=== PATIENT | female | born 1935 | race Caucasian/White ===

== ENCOUNTER 2022-01-06 13:12 | Inpatient (IN) ==
[2022-01-06] MEDS ORDERED: IOPAMIDOL 100 ML BOTTLE IV ONE (13:13)
[2022-01-06] MEDS ORDERED: methylPREDNISolone SOD SUCC 125 MG/2 ML VIAL IV ONE (13:43)
[2022-01-06] MEDS ORDERED: IPRATROPIUM/ALBUTEROL 3 ML AMPUL.NEB NEB ONE (13:43)
[2022-01-06] MEDS ORDERED: 0.9 % SODIUM CHLORIDE 500 ML IV ONE (13:43)
--- NOTE | 2022-01-06 13:49 | Emergency Department Note ---
SOB HPI General Chief Complaint: Shortness of Breath/Dyspnea Stated Complaint: SOB Time Seen by Provider: 01/06/22 13:30 Source: patient and family Mode of arrival: wheelchair Limitations: no limitations History of Present Illness HPI Narrative: Narrative: 86-year-old female with past medical history of hypertension, atrial fibrillation on Coumadin, hypothyroidism, CVA presents with cough and shortness of breath since this morning. Patient had flu shot and COVID booster shots yesterday. No headache dizziness chest pain abdominal pain nausea vomiting diarrhea fever or chills Related Data Home Medications Medication Instructions Recorded Confirmed atorvastatin 20 mg tablet 10 mg PO HS 11/24/16 11/24/16 furosemide 40 mg tablet 40 mg PO DAILY 11/24/16 11/24/16 levothyroxine 112 mcg tablet 112 mcg PO DAILY 11/24/16 11/24/16 lisinopril 5 mg tablet 5 mg PO DAILY 11/24/16 11/24/16 nebivolol 10 mg tablet (Bystolic) 15 mg PO DAILY 11/24/16 11/24/16 potassium chloride 20 mEq 20 meq PO BID 11/24/16 11/24/16 tablet,extended release (K-Tab) warfarin 5 mg tablet (Jantoven) 5 mg PO DAILY 11/24/16 11/24/16 Previous Rx's Medication Instructions Recorded atorvastatin 20 mg tablet 10 mg PO HS #30 tabs 11/24/16 furosemide 40 mg tablet 40 mg PO DAILY #30 tabs 11/24/16 levothyroxine 112 mcg tablet 112 mcg PO DAILY #30 tabs 11/24/16 lisinopril 5 mg tablet 5 mg PO DAILY #30 tabs 11/24/16 nebivolol 10 mg tablet 15 mg PO DAILY #45 tabs 11/24/16 potassium chloride 20 mEq 20 meq PO BIDCC #60 tabs 11/24/16 tablet,extended release(part/cryst) warfarin 5 mg tablet 5 mg PO DAILY #30 tabs 11/24/16 benzonatate 100 mg capsule 100 mg PO TIDP PRN Cough #21 caps 04/12/19 hydrocodone 5 mg-acetaminophen 325 1 tab PO Q6-8HP PRN pain #10 tabs 1023/20 mg tablet Allergies Allergy/AdvReac Type Severity Reaction Status Date / Time iodine Allergy Unknown Unknown Verified 01/06/22 13:12 Review of Systems ROS ROS Narrative: Narrative: All systems ED: reviewed and negative except as stated. Constitutional: Reports as per HPI [facility] Narrative Patient History Narrative: Narrative: Medical/Surgical/Family History All Active Problems (Updated 01/06/22 @ 19:05 by Justino Liang MD) Acute confusion (Acute) Breath shortness (Acute) Cough (Acute) Hypoxia (Acute) Atrial fibrillation (Acute) Encounter for medication refill (Acute) Cough (Acute) Hypertension (Acute) Closed fracture of left wrist (Acute) Social History Smoking Status: Never smoker Alcohol Intake Frequency: does not drink Substance Use: does not use Exam Narrative Narrative: Narrative: General Limitations: no limitations General appearance: Present alert and in no apparent distress Head Head: Present atraumatic and normocephalic Respiratory Respiratory: Present wheezes (Bilateral inspiratory and expiratory) Cardiovascular Cardiovascular: Present regular rate, normal rhythm and normal heart sounds Adbominal Abdominal: Present soft and normal bowel sounds; Absent tenderness or organomegaly Extremities Extremities: Absent pedal edema, cyanosis or clubbing Neurological Neurological: Present alert and oriented X3 Course Course Course Narrative: CBC, CMP, PT/INR, chest x-ray, UA, influenza a and B, COVID were ordered. Normal saline 500 mL IV, methylprednisolone 125 mg IV and DuoNeb were given. Patient continues to have shortness of breath. She is hypoxic at the 88% on room air, improves to 96% on O2 2 L. WBC 6.8 INR 1.8. Potassium 3.2. BUN/creatinine 14/0.8. His INR is still subtherapeutic we will do CT angio of chest to rule out pulmonary embolism. CT angio was negative for pulmonary embolism. Patient is still hypoxic without O2. Will admit patient to [facility] for further treatment with nebulizers and IV steroids. Case discussed with hospitalist Dr. [place] who accepted the patient for admission. Vital Signs Vital signs: Vital Signs Pulse Rate 99 H 01/06/22 13:13 Respiratory Rate 22 01/06/22 13:13 Blood Pressure 190/102 01/06/22 13:13 Pulse Oximetry (%) 93 01/06/22 13:13 Oxygen Delivery Method 01/06/22 13:13 Pulse Rate 77 01/06/22 18:01 Respiratory Rate 21 01/06/22 18:01 Blood Pressure 127/78 01/06/22 18:01 Pulse Oximetry (%) 96 01/06/22 18:01 Oxygen Delivery Method 01/06/22 16:01 Oxygen Flow Rate (L/min) 2 01/06/22 15:31 MDM MDM Narrative Medical decision making narrative: Narrative: Lab Data Result diagrams: 01/06/22 14:15 01/06/22 14:14 Labs: Lab Results 01/06/22 01/06/22 01/06/22 Range/Units 14:14 14:14 14:15 WBC 6.8 (4.5-11.0) K/mcL RBC 4.60 (3.59-5.38) M/mcL Hgb 13.9 (11.2-15.7) g/dL Hct 43.1 (34.1-44.9) % POC Hct (36-48) MCV 93.7 (80.0-100.0) fL MCH 30.2 (26.0-34.0) pg MCHC 32.3 (31.0-36.0) g/dL RDW 14.8 H (11.5-14.5) % Plt Count 220 (140-440) K/mcL MPV 10.1 (8.8-12.5) fL Immature Gran % (Auto) 0.3 (0.0-0.5) % Neut % (Auto) 85.6 H (38.0-78.0) % Lymph % (Auto) 5.9 L (15.5-49.0) % [place] % (Auto) 6.9 (1.0-12.0) % Eos % (Auto) 0.4 (0.0-7.0) % Baso % (Auto) 0.9 (0.0-2.0) % Lymph # (Auto) 0.40 L (1.50-4.80) K/mcL [place] # (Auto) 0.47 (0.10-0.90) K/mcL Eos # (Auto) 0.03 (0.00-0.70) K/mcL Baso # (Auto) 0.06 (0.00-0.30) K/mcL Immature Gran # 0.02 (0.00-0.05) K/mcl Absolute Neutrophils 5.82 (1.80-8.00) K/mcL POC PT (11.9-14.5) POC INR (0.8-1.2) D-Dimer 0.73 H (0.27-0.50) ug/mL POC Sodium (133-145) Sodium 138 (133-145) mmol/L POC Potassium (3.3-5.1) Potassium 3.2 L (3.3-5.1) mmol/L POC Chloride (96-108) Chloride 97 (96-108) mmol/L Carbon Dioxide 31 H (22-30) mmol/L POC Total CO2 (22-30) Anion Gap 10.0 (8.0-16.0) POC BUN (6-20) BUN 14 (8-23) mg/dL Creatinine 0.8 (0.6-1.1) mg/dL POC Creatinine (0.6-1.2) GFR Calculation 66 Glucose 132 H (70-105) mg/dL POC Glucose (70-105) Calcium 9.2 (8.6-10.4) mg/dL POC WB Ioniz Calcium (1.16-1.32) Total Bilirubin 0.6 (0.1-1.0) mg/dL AST 25 (<32) U/L ALT 17 (<40) U/L Alkaline Phosphatase 79 (39-117) U/L Total Protein 7.0 (5.9-8.4) gm/dL Albumin 3.9 (3.2-5.2) gm/dL Globulin 3.1 (2.2-3.7) gm/dL Albumin/Globulin Ratio 1.3 (1.0-2.3) 01/06/22 01/06/22 Range/Units 14:25 15:53 WBC (4.5-11.0) K/mcL RBC (3.59-5.38) M/mcL Hgb (11.2-15.7) g/dL Hct (34.1-44.9) % POC Hct 43.0 (36-48) MCV (80.0-100.0) fL MCH (26.0-34.0) pg MCHC (31.0-36.0) g/dL RDW (11.5-14.5) % Plt Count (140-440) K/mcL MPV (8.8-12.5) fL Immature Gran % (Auto) (0.0-0.5) % Neut % (Auto) (38.0-78.0) % Lymph % (Auto) (15.5-49.0) % [place] % (Auto) (1.0-12.0) % Eos % (Auto) (0.0-7.0) % Baso % (Auto) (0.0-2.0) % Lymph # (Auto) (1.50-4.80) K/mcL [place] # (Auto) (0.10-0.90) K/mcL Eos # (Auto) (0.00-0.70) K/mcL Baso # (Auto) (0.00-0.30) K/mcL Immature Gran # (0.00-0.05) K/mcl Absolute Neutrophils (1.80-8.00) K/mcL POC PT 20.9 H (11.9-14.5) POC INR 1.8 H (0.8-1.2) D-Dimer (0.27-0.50) ug/mL POC Sodium 137 (133-145) Sodium (133-145) mmol/L POC Potassium 3.2 L (3.3-5.1) Potassium (3.3-5.1) mmol/L POC Chloride 98 (96-108) Chloride (96-108) mmol/L Carbon Dioxide (22-30) mmol/L POC Total CO2 29.0 (22-30) Anion Gap (8.0-16.0) POC BUN 14 (6-20) BUN (8-23) mg/dL Creatinine (0.6-1.1) mg/dL POC Creatinine 0.7 (0.6-1.2) GFR Calculation Glucose (70-105) mg/dL POC Glucose 130 H (70-105) Calcium (8.6-10.4) mg/dL POC WB Ioniz Calcium 1.05 L (1.16-1.32) Total Bilirubin (0.1-1.0) mg/dL AST (<32) U/L ALT (<40) U/L Alkaline Phosphatase (39-117) U/L Total Protein (5.9-8.4) gm/dL Albumin (3.2-5.2) gm/dL Globulin (2.2-3.7) gm/dL Albumin/Globulin Ratio (1.0-2.3) ED POC Tests ED POC Tests: KAMRYN - Influenza A Negative KAMRYN - Influenza B Negative KAMRYN - SARS Antigen Negative Discharge Plan Patient/Caregiver Discharge Instructions Pt seen by AIRPORT DRIVER/PA only: No Clinical Impression: Breath shortness, Cough, Hypoxia Patient Disposition: Xfer As Inpt ([facility]) Condition: Serious Follow up with: Pamela Bowman ARNP [Primary Care Provider] - Prescriptions: No Action furosemide 40 MG tablet 40 mg PO DAILY atorvastatin 20 MG tablet 10 mg PO HS warfarin [Jantoven] 5 MG tablet 5 mg PO DAILY lisinopril 5 MG tablet 5 mg PO DAILY levothyroxine 112 MCG tablet 112 mcg PO DAILY nebivolol [Bystolic] 10 MG tablet 15 mg PO DAILY potassium chloride [K-Tab] 20 MEQ tablet extended release 20 meq PO BID furosemide 40 MG tablet 40 mg PO DAILY Qty: 30 0RF atorvastatin 20 MG tablet 10 mg PO HS Qty: 30 0RF potassium chloride 20 MEQ tablet 20 meq PO BIDCC Qty: 60 0RF warfarin 5 MG tablet 5 mg PO DAILY Qty: 30 0RF lisinopril 5 MG tablet 5 mg PO DAILY Qty: 30 0RF levothyroxine 112 MCG tablet 112 mcg PO DAILY Qty: 30 0RF nebivolol 10 MG tablet 15 mg PO DAILY Qty: 45 0RF benzonatate 100 MG capsule 100 mg PO TIDP PRN (Reason: Cough) Qty: 21 0RF hydrocodone-acetaminophen 5-325 mg tablet 1 tab PO Q6-8HP PRN (Reason: pain) Qty: 10 0RF
--- NOTE | 2022-01-06 14:02 | XRay Report ---
INDICATION: cough TECHNIQUE: AP portable chest x-ray COMPARISON: Previous chest x-rays dated 02/16/2021, 04/12/2019 FINDINGS: Lungs:Focal right paraspinal density projected over the upper right lung. This is probably vascular as this does not extend above the clavicles. Appearance is unchanged since previous examinations. No other focal pulmonary parenchymal abnormality Heart, vascular:No significant cardiomegaly. Pulmonary vascularity is normal. No pulmonary edema or pulmonary congestion Mediastinum, kalli:No mediastinal widening. No hilar mass Pleura:Small left pleural effusion is essentially unchanged Skeletal:Negative. There is degenerative disease in both glenohumeral joints IMPRESSION: 1. Small left pleural effusion 2. No focal pulmonary parenchymal abnormality 3. No significant interval change Interpreted and Authenticated by: Bernabe Graham 01/06/22
[2022-01-06 14:29] LABS: POC INR 1.8 (0.8-1.2); POC Pro Time 20.9 (11.9-14.5)
[2022-01-06 15:02] LABS: Basophils # (Auto) 0.06 K/mcL (0.00-0.30); Basophils % (Auto) 0.9 % (0.0-2.0); Eosinophils # (Auto) 0.03 K/mcL (0.00-0.70); Eosinophils % (Auto) 0.4 % (0.0-7.0); Hematocrit 43.1 % (34.1-44.9); Hemoglobin 13.9 g/dL (11.2-15.7); Lymphocytes % (Auto) 5.9 % (15.5-49.0); Mean Cell Volume 93.7 fL (80.0-100.0); Mean Corpuscular HGB Conc 32.3 g/dL (31.0-36.0); Mean Platelet Volume 10.1 fL (8.8-12.5); Monocytes # (Auto) 0.47 K/mcL (0.10-0.90); Monocytes % (Auto) 6.9 % (1.0-12.0); Neutrophils % (Auto) 85.6 % (38.0-78.0); Platelet Count 220 K/mcL (140-440); Red Cell Distribution Width 14.8 % (11.5-14.5); WBC 6.8 K/mcL (4.5-11.0)
[2022-01-06 15:39] LABS: ALT/SGPT 17 U/L (<40); AST/SGOT 25 U/L (<32); Albumin 3.9 gm/dL (3.2-5.2); Albumin/Globulin Ratio 1.3 (1.0-2.3); Alkaline Phosphatase 79 U/L (39-117); Bilirubin,Total 0.6 mg/dL (0.1-1.0); Blood Urea Nitrogen 14 mg/dL (8-23); Calcium 9.2 mg/dL (8.6-10.4); Carbon Dioxide 31 mmol/L (22-30); Chloride 97 mmol/L (96-108); Globulin 3.1 gm/dL (2.2-3.7); Glomerular Filtration Rate 66; Glucose 132 mg/dL (70-105)
[2022-01-06 15:56] LABS: POC Calcium, Ionized 1.05 (1.16-1.32); POC Creatinine 0.7 (0.6-1.2); POC Potassium 3.2 (3.3-5.1)
--- NOTE | 2022-01-06 16:40 | Cat Scan Report ---
INDICATION: shortness of breath, Low INR COMPARISON: Chest x-ray dated 01/06/2022 TECHNIQUE: Axial images obtained through the chest. 50ml Isovue 370 injected intravenously, and scanning was performed during pulmonary arterial phase. Sagittally and coronally reformatted images were obtained. MIP reformatted images. FINDINGS: Lungs:Findings consistent with bilateral lower lobe volume loss, right slightly worse than left. There is mild volume loss adjacent to the left greater fissure. No evidence for pneumonia. No consolidation. There is no focal pulmonary parenchymal mass Mediastinum, vascular:Main pulmonary artery, right pulmonary artery, left pulmonary artery are negative. No intraluminal filling defects. No lobar, segmental, or subsegmental emboli. Thoracic aorta is negative. No aneurysmal dilatation No pathologic mediastinal or hilar adenopathy Heart:There is cardiomegaly. There is marked enlargement of the right atrium. No significant reflux of contrast material into the inferior vena cava or hepatic veins Pleura:There are small bilateral pleural effusions Axilla, supraclavicular regions, chest wall:No pathologic axillary or supraclavicular adenopathy. Musculoskeletal:Negative thoracic spine. No compression fracture. No lytic lesion. No rib or sternal lesions Upper Abdomen:There is a large low-density abnormality within the liver. This measures approximately 13 cm in AP dimension and 10 cm in mediolateral dimension. Is not measured and craniocaudal dimension. Appearance is consistent with a large hepatic cyst. IMPRESSION: 1. Negative pulmonary CTA. No pulmonary embolism 2. Cardiomegaly. Marked right atrial enlargement. 3. Bilateral lower lobe volume loss. Small bilateral pleural effusions 4. Large low density lesion within the liver consistent with hepatic cyst The exam was performed using radiation dose optimization techniques including, but not limited to, automated exposure control, adjustment of the mA and/or kV according to patient size and use of iterative reconstruction technique. Interpreted and Authenticated by: Bernabe Graham 01/06/22
--- NOTE | 2022-01-06 19:07 | Internal Med History&Physical ---
HPI History of Present Illness Patient information: Note initiated : 01/06/22 at 7:02 pm Service Date, if different from initiated Date: [] Patient: Kevon Gomez 86 y/o F admitted on for Shortness of breath. Chief Complaint: [] History of present illness: Ms. Gomez is a 86 year old F Presents to the ED with dry cough and shortness of breath that started this morning. Patient denies history of asthma or COPD. She had a flu shot and COVID booster the other day. In the ED she was found to be hypoxic at 86% and mild tachypnea. She was wheezy on exam. Was given nebulizers and Solu-Medrol. CT of the chest was done which showed small effusions but otherwise unremarkable. RSV pending. Rapid COVID and flu were negative. She has a history of CVA as well as A. fib on Coumadin hypertension and hypothyroidism and diastolic heart failure. Potassium mildly low. Per the patient she was feeling fine yesterday she had the flu vaccine and the COVID booster. She went to bed feeling okay and woke up feeling fine. However she says her son felt she was a bit confused this morning. And she also admits to a mild cough and shortness of breath. Denies headache fever chills chest pain. She also feels little bit wheezy. Review of Systems: Positives as above. Denies headache/fever/chills/nausea/vomiting/chest or abdominal pain/diarrhea. Remaining 10 point review of system reviewed negative PFSH PFSH All Active Problems (Updated 01/06/22 @ 19:05 by Justino Liang MD) Acute confusion (Acute) Breath shortness (Acute) Cough (Acute) Hypoxia (Acute) Atrial fibrillation (Acute) Encounter for medication refill (Acute) Cough (Acute) Hypertension (Acute) Closed fracture of left wrist (Acute) Social History smoking status: Never smoker alcohol intake frequency: does not drink substance use type: does not use MEDS/ALLERGIES Home Medications and Allergies Home Medications Medication Instructions Recorded Confirmed Type atorvastatin 20 mg tablet 10 mg PO HS 11/24/16 01/06/22 History furosemide 40 mg tablet 40 mg PO DAILY 11/24/16 11/24/16 History levothyroxine 112 mcg tablet 112 mcg PO DAILY 11/24/16 01/06/22 History lisinopril 5 mg tablet 5 mg PO DAILY 11/24/16 01/06/22 History nebivolol 10 mg tablet (Bystolic) 15 mg PO DAILY 11/24/16 01/06/22 History potassium chloride 20 mEq 20 meq PO BIDCC #60 tabs 11/24/16 01/06/22 Rx tablet,extended release(part/cryst) warfarin 5 mg tablet (Jantoven) 5 mg PO DAILY 11/24/16 01/06/22 History benzonatate 100 mg capsule 100 mg PO TIDP PRN Cough #21 caps 04/12/19 01/06/22 Rx hydrocodone 5 mg-acetaminophen 325 1 tab PO Q6-8HP PRN pain #10 tabs 11/30/19 Rx mg tablet Allergies Allergy/AdvReac Type Severity Reaction Status Date / Time iodine AdvReac Mild [place] skin Verified 01/06/22 20:21 EXAM Constitutional Vitals: Pulse Resp BP Pulse Ox O2 Del Method O2 Flow Rate 77 21 127/78 96 2 01/06/22 18:01 01/06/22 18:01 01/06/22 18:01 01/06/22 18:01 01/06/22 16:01 01/06/22 15:31 Exam: General: Alert, Awake, No acute Distress Eyes/N/T: EOMI, PERRL, Head/Neck: neck supple, normocephalic atraumatic CV: irreg irreg, No murmurs, normal s1/s2 Pulm: mild wheezing b/l, no rales Abd: soft, nontender, +BS x4 Ext: no clubbing/cyanosis, trace b/l LE edema Neuro: Alert, no focal deficits, moves all extremities, CN 2-12 grossly intact, sensations intact b/l upper/lower Skin: warm/dry DATA Data Completed and Pending Labs: Labs from last 24 hours 01/06/22 01/06/22 01/06/22 15:53 14:25 14:15 WBC 6.8 RBC 4.60 Hgb 13.9 Hct 43.1 POC Hct 43.0 MCV 93.7 MCH 30.2 MCHC 32.3 RDW 14.8 H Plt Count 220 MPV 10.1 Immature Gran % (Auto) 0.3 Neut % (Auto) 85.6 H Lymph % (Auto) 5.9 L [place] % (Auto) 6.9 Eos % (Auto) 0.4 Baso % (Auto) 0.9 Lymph # (Auto) 0.40 L [place] # (Auto) 0.47 Eos # (Auto) 0.03 Baso # (Auto) 0.06 Immature Gran # 0.02 Absolute Neutrophils 5.82 POC PT 20.9 H POC INR 1.8 H D-Dimer POC Sodium 137 Sodium POC Potassium 3.2 L Potassium POC Chloride 98 Chloride Carbon Dioxide POC Total CO2 29.0 Anion Gap POC BUN 14 BUN Creatinine POC Creatinine 0.7 GFR Calculation Glucose POC Glucose 130 H Calcium POC WB Ioniz Calcium 1.05 L Total Bilirubin AST ALT Alkaline Phosphatase Total Protein Albumin Globulin Albumin/Globulin Ratio 01/06/22 01/06/22 14:14 14:14 WBC RBC Hgb Hct POC Hct MCV MCH MCHC RDW Plt Count MPV Immature Gran % (Auto) Neut % (Auto) Lymph % (Auto) [place] % (Auto) Eos % (Auto) Baso % (Auto) Lymph # (Auto) [place] # (Auto) Eos # (Auto) Baso # (Auto) Immature Gran # Absolute Neutrophils POC PT POC INR D-Dimer 0.73 H POC Sodium Sodium 138 POC Potassium Potassium 3.2 L POC Chloride Chloride 97 Carbon Dioxide 31 H POC Total CO2 Anion Gap 10.0 POC BUN BUN 14 Creatinine 0.8 POC Creatinine GFR Calculation 66 Glucose 132 H POC Glucose Calcium 9.2 POC WB Ioniz Calcium Total Bilirubin 0.6 AST 25 ALT 17 Alkaline Phosphatase 79 Total Protein 7.0 Albumin 3.9 Globulin 3.1 Albumin/Globulin Ratio 1.3 A/P Narrative A/P Narrative: A: *Acute hypoxic respiratory failure: etiology -on 2L NC *Reactive airway, possibly viral-associated bronchial reactivity: *Encephalopathy: Improved *Chronic Afib: *h/o CVA: *h/o diastolic CHF: *HTN/HLD: *Hypothyroidism: *Hypokalemia: P: -nebs -steroids -O2 supp and wean -f/u cxr in AM -RSV pending -Monitor and replace electrolytes -Continue home BB/ACEI -cont home lasix - -Home medication reconciliation -PT/OT -ppx: warfarin per pharm Time Spent With Patient Time: Total time spent is greater than 50% in coordination of care (as documented) at patient's floor/unit and/or counseling patient: Total time spent with greater than 50% in coordination of care (as documented) at patient's floor/unit and/or counseling patient:: Greater than 70 minutes
[2022-01-06] MEDS ORDERED: POTASSIUM CHLORIDE 40 MEQ in DEXTROSE 5% IN WATER 500 ML IV PRN (19:59)
[2022-01-06] MEDS ORDERED: IPRATROPIUM/ALBUTEROL 3 ML AMPUL.NEB NEB PRN (19:59)
[2022-01-06] MEDS ORDERED: SENNOSIDES 1 TABLET PO PRN (19:59)
[2022-01-06] MEDS ORDERED: ACETAMINOPHEN 325 MG TABLET PO PRN (19:59)
[2022-01-06] MEDS ORDERED: POTASSIUM CHLORIDE 20 MEQ TABLET PO PRN ×2 (19:59)
[2022-01-06] MEDS ORDERED: MAGNESIUM SULFATE 2 GM/50 ML BAG IV PRN (19:59)
[2022-01-06] MEDS ORDERED: POLYETHYLENE GLYCOL 3350 17 GM PACKET PO PRN (19:59)
[2022-01-06] MEDS ORDERED: ONDANSETRON 4 MG/2 ML VIAL IV PRN (19:59)
[2022-01-06] MEDS: IPRATROPIUM/ALBUTEROL 3 ML AMPUL.NEB NEB SCH (20:54)
[2022-01-06] MEDS ORDERED: WARFARIN 5 MG TABLET PO ONE (21:00)
[2022-01-06] MEDS ORDERED: HYDROcodone/APAP 5/325MG TABLET PO PRN (21:00)
[2022-01-06] MEDS: methylPREDNISolone SOD SUCC 40 MG/ML VIAL IV SCH (21:06)
[2022-01-06] MEDS: DOCUSATE SODIUM 100 MG CAPSULE PO SCH (21:06)
[2022-01-06] MEDS: OSELTAMIVIR PHOSPHATE 75 MG CAPSULE PO SCH (21:06)
[2022-01-06] MEDS: 0.9 % SODIUM CHLORIDE 10 ML SYRINGE IV SCH (21:06)
[2022-01-06] MEDS: ATORVASTATIN 20 MG TABLET PO SCH (22:15)
[2022-01-07] MEDS: IPRATROPIUM/ALBUTEROL 3 ML AMPUL.NEB NEB SCH ×2 (03:40→15:53)
[2022-01-07] MEDS: 0.9 % SODIUM CHLORIDE 10 ML SYRINGE IV SCH ×4 (04:06→22:48)
[2022-01-07] MEDS: METOPROLOL TARTRATE 5 MG/5 ML VIAL IV PRN ×4 (04:06→16:35)
--- NOTE | 2022-01-07 06:13 | XRay Report ---
INDICATION: f/u for cough and hypoxia TECHNIQUE: AP portable semiupright chest x-ray COMPARISON: None FINDINGS: Lungs:Mild bibasilar pulmonary parenchymal density. Findings are consistent with mild volume loss. Pneumonia is possible. Heart, vascular:No significant cardiomegaly. Pulmonary vascularity is normal. No pulmonary edema or pulmonary congestion Mediastinum, kalli:No mediastinal widening. No hilar mass Pleura:Small bilateral pleural effusions Skeletal:Negative. IMPRESSION: 1. Mild bibasilar atelectasis or infiltrate 2. Small bilateral pleural effusions Interpreted and Authenticated by: Bernabe Graham 01/07/22
--- NOTE | 2022-01-07 07:42 | Internal Med History&Physical ---
HPI History of Present Illness Patient information: Note initiated : 01/07/22 at 7:38 am Service Date, if different from initiated Date: [] Patient: Kevon Gomez 86 y/o F admitted on 01/06/22 for Shortness of breath- Acute Hypoxic Resp Failure. Chief Complaint: [] History of present illness: Ms. Gomez is a 86 year old F History of present illness: Ms. Gomez is a 86 year old F Presents to the ED with dry cough and shortness of breath that started this morning. Patient denies history of asthma or COPD. She had a flu shot and COVID booster the other day. In the ED she was found to be hypoxic at 86% and mild tachypnea. She was wheezy on exam. Was given nebulizers and Solu-Medrol. CT of the chest was done which showed small effusions but otherwise unremarkable. RSV pending. Rapid COVID and flu were negative. She has a history of CVA as well as A. fib on Coumadin hypertension and hypothyroidism and diastolic heart failure. Potassium mildly low. Per the patient she was feeling fine yesterday she had the flu vaccine and the COVID booster. She went to bed feeling okay and woke up feeling fine. However she says her son felt she was a bit confused this morning. And she also admits to a mild cough and shortness of breath. Denies headache fever chills chest pain. She also feels little bit wheezy. 01/07 PFSH PFSH All Active Problems (Updated 01/06/22 @ 19:05 by Justino Liang MD) Acute confusion (Acute) Breath shortness (Acute) Cough (Acute) Hypoxia (Acute) Atrial fibrillation (Acute) Encounter for medication refill (Acute) Cough (Acute) Hypertension (Acute) Closed fracture of left wrist (Acute) Social History smoking status: Never smoker alcohol intake frequency: does not drink substance use type: does not use MEDS/ALLERGIES Home Medications and Allergies Home Medications Medication Instructions Recorded Confirmed Type atorvastatin 20 mg tablet 10 mg PO HS 11/24/16 01/06/22 History furosemide 40 mg tablet 40 mg PO DAILY 11/24/16 11/24/16 History levothyroxine 112 mcg tablet 112 mcg PO DAILY 11/24/16 01/06/22 History lisinopril 5 mg tablet 5 mg PO DAILY 11/24/16 01/06/22 History potassium chloride 20 mEq 20 meq PO BIDCC #60 tabs 11/24/16 01/06/22 Rx tablet,extended release(part/cryst) warfarin 5 mg tablet (Jantoven) 5 mg PO DAILY 11/24/16 01/06/22 History benzonatate 100 mg capsule 100 mg PO TIDP PRN Cough #21 caps 04/12/19 01/06/22 Rx hydrocodone 5 mg-acetaminophen 325 1 tab PO Q6-8HP PRN pain #10 tabs 11/30/19 Rx mg tablet bisoprolol fumarate 10 mg tablet 15 mg PO QAM blood pressure 01/07/22 01/07/22 History Allergies Allergy/AdvReac Type Severity Reaction Status Date / Time iodine AdvReac Mild [place] skin Verified 01/06/22 20:21 EXAM Constitutional Vitals: Temp Pulse Resp BP Pulse Ox O2 Del Method O2 Flow Rate 98.2 F 84 24 H 144/91 95 3 01/07/22 03:37 01/07/22 03:57 01/07/22 03:57 01/07/22 03:37 01/07/22 03:43 01/07/22 03:43 01/07/22 03:43 Exam: General: Alert, Awake, No acute Distress Eyes/N/T: EOMI,, Head/Neck: neck supple, CV: irreg irreg, No murmurs, Pulm: mild wheezing b/l, no rales Abd: soft, nontender, +BS x4 Ext: no clubbing/cyanosis, trace b/l LE edema Neuro: Alert, no focal deficits, moves all extremities, Skin: warm/dry DATA Data Completed and Pending Labs: Labs from last 24 hours 01/07/22 01/07/22 01/06/22 05:30 05:30 15:53 WBC Pending RBC Pending Hgb Pending Hct Pending POC Hct 43.0 MCV Pending MCH Pending MCHC Pending RDW Pending Plt Count Pending MPV Pending Immature Gran % (Auto) Pending Neut % (Auto) Pending Lymph % (Auto) Cobb % (Auto) Eos % (Auto) Baso % (Auto) Lymph # (Auto) Cobb # (Auto) Eos # (Auto) Baso # (Auto) Immature Gran # Pending Absolute Neutrophils POC PT POC INR D-Dimer POC Sodium 137 Sodium Pending POC Potassium 3.2 L Potassium Pending POC Chloride 98 Chloride Pending Carbon Dioxide Pending POC Total CO2 29.0 Anion Gap Pending POC BUN 14 BUN Pending Creatinine Pending POC Creatinine 0.7 GFR Calculation Pending Glucose Pending POC Glucose 130 H Uric Acid Pending Calcium Pending POC WB Ioniz Calcium 1.05 L Phosphorus Pending Magnesium Pending Total Bilirubin Pending Direct Bilirubin Pending GGT Pending AST Pending ALT Pending Alkaline Phosphatase Pending Lactate Dehydrogenase Pending C-Reactive Protein Total Protein Pending Albumin Pending Globulin Pending Albumin/Globulin Ratio Pending Triglycerides Pending 01/06/22 01/06/22 01/06/22 14:25 14:15 14:14 WBC 6.8 RBC 4.60 Hgb 13.9 Hct 43.1 POC Hct MCV 93.7 MCH 30.2 MCHC 32.3 RDW 14.8 H Plt Count 220 MPV 10.1 Immature Gran % (Auto) 0.3 Neut % (Auto) 85.6 H Lymph % (Auto) 5.9 L Cobb % (Auto) 6.9 Eos % (Auto) 0.4 Baso % (Auto) 0.9 Lymph # (Auto) 0.40 L Cobb # (Auto) 0.47 Eos # (Auto) 0.03 Baso # (Auto) 0.06 Immature Gran # 0.02 Absolute Neutrophils 5.82 POC PT 20.9 H POC INR 1.8 H D-Dimer POC Sodium Sodium POC Potassium Potassium POC Chloride Chloride Carbon Dioxide POC Total CO2 Anion Gap POC BUN BUN Creatinine POC Creatinine GFR Calculation Glucose POC Glucose Uric Acid Calcium POC WB Ioniz Calcium Phosphorus Magnesium Total Bilirubin Direct Bilirubin GGT AST ALT Alkaline Phosphatase Lactate Dehydrogenase C-Reactive Protein 1.00 H Total Protein Albumin Globulin Albumin/Globulin Ratio Triglycerides 01/06/22 01/06/22 14:14 14:14 WBC RBC Hgb Hct POC Hct MCV MCH MCHC RDW Plt Count MPV Immature Gran % (Auto) Neut % (Auto) Lymph % (Auto) Cobb % (Auto) Eos % (Auto) Baso % (Auto) Lymph # (Auto) Cobb # (Auto) Eos # (Auto) Baso # (Auto) Immature Gran # Absolute Neutrophils POC PT POC INR D-Dimer 0.73 H POC Sodium Sodium 138 POC Potassium Potassium 3.2 L POC Chloride Chloride 97 Carbon Dioxide 31 H POC Total CO2 Anion Gap 10.0 POC BUN BUN 14 Creatinine 0.8 POC Creatinine GFR Calculation 66 Glucose 132 H POC Glucose Uric Acid Calcium 9.2 POC WB Ioniz Calcium Phosphorus Magnesium Total Bilirubin 0.6 Direct Bilirubin GGT AST 25 ALT 17 Alkaline Phosphatase 79 Lactate Dehydrogenase C-Reactive Protein Total Protein 7.0 Albumin 3.9 Globulin 3.1 Albumin/Globulin Ratio 1.3 Triglycerides A/P Narrative A/P Narrative: A: *Acute hypoxic respiratory failure: 2/2 viral reactive airway vs ?developing pna -on 2L [place] *Reactive airway, viral-associated bronchial reactivity: -flu(+), rsv(-) *Influenza A infection: *Encephalopathy: Improved *Chronic Afib: *h/o CVA: *h/o diastolic CHF: *HTN/HLD: *Hypothyroidism: *Hypokalemia: P: -nebs -steroids -O2 supp and wean -f/u cxr in AM -RSV pending -Monitor and replace electrolytes -f/u cbc/chemistry -Continue home BB/ACEI -cont home lasix -pct -PT/OT -ppx: warfarin per pharm Time Spent With Patient Time: Total time spent is greater than 50% in coordination of care (as documented) at patient's floor/unit and/or counseling patient: Total time spent with greater than 50% in coordination of care (as documented) at patient's floor/unit and/or counseling patient:: 35 - 50 minutes QUALITY VTE Deep Vein Thrombosis/Pulmonary Embolism Present on Admission: No
[2022-01-07 07:58] LABS: Basophils # (Auto) 0.01 K/mcL (0.00-0.30); Basophils % (Auto) 0.2 % (0.0-2.0); Eosinophils # (Auto) 0 K/mcL (0.00-0.70); Eosinophils % (Auto) 0 % (0.0-7.0); Hematocrit 42.9 % (34.1-44.9); Hemoglobin 14.1 g/dL (11.2-15.7); Lymphocytes # (Auto) 0.26 K/mcL (1.50-4.80); Lymphocytes % (Auto) 5.3 % (15.5-49.0); Mean Cell Volume 93.1 fL (80.0-100.0); Mean Corpuscular HGB Conc 32.9 g/dL (31.0-36.0); Mean Platelet Volume 10.3 fL (8.8-12.5); Monocytes # (Auto) 0.34 K/mcL (0.10-0.90); Neutrophils % (Auto) 87.3 % (38.0-78.0); Platelet Count 209 K/mcL (140-440); RBC 4.61 M/mcL (3.59-5.38); Red Cell Distribution Width 14.7 % (11.5-14.5); WBC 4.9 K/mcL (4.5-11.0)
[2022-01-07] MEDS: LEVOTHYROXINE SODIUM 112 MCG TABLET PO SCH (08:07)
[2022-01-07] MEDS: methylPREDNISolone SOD SUCC 40 MG/ML VIAL IV SCH ×2 (08:07→21:46)
[2022-01-07] MEDS: DOCUSATE SODIUM 100 MG CAPSULE PO SCH ×2 (08:07→23:03)
[2022-01-07] MEDS: FUROSEMIDE 40 MG TABLET PO SCH (08:07)
[2022-01-07] MEDS: LISINOPRIL 5 MG TABLET PO SCH (08:07)
[2022-01-07] MEDS: OSELTAMIVIR PHOSPHATE 75 MG CAPSULE PO SCH ×2 (08:07→21:44)
[2022-01-07 08:56] LABS: INR 1.8 (0.9-1.1); Prothrombin Time 21.1 sec (11.9-14.5)
[2022-01-07] MEDS ORDERED: BISOPROLOL 5 MG TABLET PO SCH (09:00)
--- NOTE | 2022-01-07 09:21 | Internal Med Progress Note ---
SUBJECTIVE Subjective Patient information: Note initiated : 01/07/22 at 9:20 am Service Date, if different from initiated Date: [] Patient: Kevon Gomez 86 y/o F admitted on 01/06/22 for Shortness of breath- Acute Hypoxic Resp Failure. Chief Complaint: [] Interval history: History of present illness: Ms. Gomez is a 86 year old F History of present illness: Ms. Gomez is a 86 year old F Presents to the ED with dry cough and shortness of breath that started this morning. Patient denies history of asthma or COPD. She had a flu shot and COVID booster the other day. In the ED she was found to be hypoxic at 86% and mild tachypnea. She was wheezy on exam. Was given nebulizers and Solu-Medrol. CT of the chest was done which showed small effusions but otherwise unremarkable. RSV pending. Rapid COVID and flu were negative. She has a history of CVA as well as A. fib on Coumadin hypertension and hypothyroidism and diastolic heart failure. Potassium mildly low. Per the patient she was feeling fine yesterday she had the flu vaccine and the COVID booster. She went to bed feeling okay and woke up feeling fine. However she says her son felt she was a bit confused this morning. And she also admits to a mild cough and shortness of breath. Denies headache fever chills chest pain. She also feels little bit wheezy. 01/07 Patient still has mild cough. Some mild shortness of breath at possibly better. Influenza A positive on testing. Chest x-ray today showed some mild bibasilar atelectasis versus infiltrate. I suspect more atelectasis. Procalcitonin is unremarkable. Mild hypokalemia. Review of Systems: denies headache/fever/chills/nausea/vomiting/chest or abdominal pain/diarrhea. Otherwise see above. Constitutional Vitals: Vital Signs Temp Pulse Resp BP Pulse Ox O2 Del Method O2 Flow Rate 98.6 F 99 H 22 150/80 97 3 01/07/22 07:45 01/07/22 07:45 01/07/22 07:45 01/07/22 07:45 01/07/22 07:45 01/07/22 07:45 01/07/22 07:45 Period Temp Pulse Resp BP Sys/Calloway Pulse Ox O2 Del Method O2 Flow Rate Last 24 Hr 97.5 F-99.0 F 72-99 16-28 127-190/76-137 86-100 Aerosol Mask- Room Air 2-3 Intake and Output 01/06/22 01/07/22 01/07/22 19:59 03:59 11:59 Intake Total 500 200 Output Total 450 Balance 500 -250 Weight 50.213 kg Intake & Output: Intake & Output 01/06/22 01/07/22 01/07/22 19:59 03:59 11:59 Intake Total 500 200 Output Total 450 Balance 500 -250 Weight 50.213 kg Intake: IV 500 Sodium Chloride 0.9% 500 ml @ 500 Wide Open IV [facility] Rx#: [id number] Oral 200 Output: Void Amount 450 Other: Urine Appearance Clear Urine Color Bright Yellow Exam: General: Alert, Awake, No acute Distress Eyes/N/T: EOMI,, Head/Neck: neck supple, CV: irreg irreg, No murmurs, Pulm: mild wheezing b/l slightly better, no rales Abd: soft, nontender, +BS x4 Ext: no clubbing/cyanosis, trace b/l LE edema Neuro: Alert, no focal deficits, moves all extremities, Skin: warm/dry OBJ DATA Labs CBC & Chem 7: 01/07/22 05:30 01/07/22 05:30 Labs: Abnormal Lab Results 01/07/22 01/07/22 01/06/22 07:51 05:30 15:53 RDW 14.7 H Neut % (Auto) 87.3 H Lymph % (Auto) 5.3 L Lymph # (Auto) 0.26 L POC PT PT 21.1 H POC INR INR 1.8 H D-Dimer POC Potassium 3.2 L Potassium Carbon Dioxide Glucose POC Glucose 130 H POC WB Ioniz Calcium 1.05 L C-Reactive Protein 01/06/22 01/06/22 01/06/22 14:25 14:15 14:14 RDW 14.8 H Neut % (Auto) 85.6 H Lymph % (Auto) 5.9 L Lymph # (Auto) 0.40 L POC PT 20.9 H PT POC INR 1.8 H INR D-Dimer POC Potassium Potassium Carbon Dioxide Glucose POC Glucose POC WB Ioniz Calcium C-Reactive Protein 1.00 H 01/06/22 01/06/22 14:14 14:14 RDW Neut % (Auto) Lymph % (Auto) Lymph # (Auto) POC PT PT POC INR INR D-Dimer 0.73 H POC Potassium Potassium 3.2 L Carbon Dioxide 31 H Glucose 132 H POC Glucose POC WB Ioniz Calcium C-Reactive Protein Meds: Medications Acetaminophen (Acetaminophen 325 Mg Tablet) 650 mg PO Q6HP PRN; Protocol PRN Reason: Per Pain Protocol/Fever > 101 Hydrocodone Bitart/Acetaminophen (Hydrocodone/Apap 5/325mg Tablet) 1 tab PO Q6- 8HP PRN; Protocol PRN Reason: pain Albuterol/Ipratropium (Ipratropium/Albuterol 3 Ml Ampul.Neb) 3 ml NEB Q4HP PRN PRN Reason: Shortness Of Breath Albuterol/Ipratropium (Ipratropium/Albuterol 3 Ml Ampul.Neb) 3 ml NEB Q8H [facility] Stop: 01/07/22 20:01 Last Admin: 01/07/22 03:40 Dose: 3 ml Atorvastatin Calcium (Atorvastatin 20 Mg Tablet) 10 mg PO [facility] Last Admin: 01/06/22 22:15 Dose: Not Given Bisoprolol Fumarate (Bisoprolol 5 Mg Tablet) 15 mg PO DAILY [facility] Docusate Sodium (Docusate Sodium 100 Mg Capsule) 100 mg PO BID [facility] Last Admin: 01/07/22 08:07 Dose: 100 mg Furosemide (Furosemide 40 Mg Tablet) 40 mg PO DAILY [facility] Last Admin: 01/07/22 08:07 Dose: 40 mg Potassium Chloride 40 meq/ (Dextrose) 520 mls @ 130 mls/hr IV UD PRN PRN Reason: Potassium < 3 Magnesium Sulfate (Magnesium Sulfate) 2 gm in 50 mls @ 50 mls/hr IV UD PRN PRN Reason: Magnesium </= 1.6 Levothyroxine Sodium (Levothyroxine Sodium 112 Mcg Tablet) 112 mcg PO DAILY [facility] Last Admin: 01/07/22 08:07 Dose: 112 mcg Lisinopril (Lisinopril 5 Mg Tablet) 5 mg PO DAILY [facility] Last Admin: 01/07/22 08:07 Dose: 5 mg Methylprednisolone Sodium Succinate (Methylprednisolone Sod Succ 40 Mg/Ml Vial) 40 mg IV Q12 [facility] Last Admin: 01/07/22 08:07 Dose: 40 mg Metoprolol Tartrate (Metoprolol Tartrate 5 Mg/5 Ml Vial) 5 mg IV Q2HP PRN PRN Reason: Tachyarrhythmias HR>110 Last Admin: 01/07/22 04:06 Dose: 5 mg Ondansetron HCl (Ondansetron 4 Mg/2 Ml Vial) 4 mg IV Q4HP PRN PRN Reason: Nausea And Vomiting Oseltamivir Phosphate (Oseltamivir Phosphate 75 Mg Capsule) 75 mg PO BID [facility] Stop: 01/11/22 09:01 Last Admin: 01/07/22 08:07 Dose: 75 mg Polyethylene Glycol (Polyethylene Glycol 3350 17 Gm Packet) 17 gm PO DAILYP PRN PRN Reason: Constipation Potassium Chloride (Potassium Chloride 20 Meq Tablet) 40 meq PO UD PRN PRN Reason: Potssium is 3-3.5 Potassium Chloride (Potassium Chloride 20 Meq Tablet) 40 meq PO UD PRN PRN Reason: Potassium < 3 Senna (Sennosides 1 Tablet) 2 tab PO DAILYP PRN PRN Reason: Constipation Sodium Chloride (0.9 % Sodium Chloride 10 Ml Syringe) 10 ml IV Q8 [facility] Last Admin: 01/07/22 04:06 Dose: 10 ml Warfarin Sodium (Warfarin Per Pharmacy) 1 order PO DAILY@1400 [facility] A/P Narrative A/P Narrative: A: *Acute hypoxic respiratory failure: 2/2 viral reactive airway vs ?developing pna -on 2L [place] *Reactive airway, viral-associated bronchial reactivity: -flu(+), rsv(-) *Influenza A infection: *Encephalopathy: Improved *Chronic Afib: *h/o CVA: *h/o diastolic CHF: *HTN/HLD: *Hypothyroidism: *Hypokalemia: P: -nebs -steroids (wean tomorrow) -tamiflu -O2 supp and wean -Monitor and replace electrolytes -f/u cbc/chemistry -Continue home BB/ACEI -cont home lasix -pct -PT/OT -ppx: warfarin per pharm Time Spent With Patient Time: Total time spent is greater than 50% in coordination of care (as documented) at patient's floor/unit and/or counseling patient: Total time spent with greater than 50% in coordination of care (as documented) at patient's floor/unit and/or counseling patient:: 35 - 50 minutes QUALITY VTE Deep Vein Thrombosis/Pulmonary Embolism Present on Admission: No
[2022-01-07 09:26] LABS: ALT/SGPT 15 U/L (<40); AST/SGOT 20 U/L (<32); Albumin 3.3 gm/dL (3.2-5.2); Alkaline Phosphatase 70 U/L (39-117); Bilirubin,Direct 0.2 mg/dL (<0.3); Bilirubin,Total 0.6 mg/dL (0.1-1.0); Blood Urea Nitrogen 16 mg/dL (8-23); Calcium 9.6 mg/dL (8.6-10.4); Carbon Dioxide 29 mmol/L (22-30); Chloride 98 mmol/L (96-108); Globulin 3.2 gm/dL (2.2-3.7); Glomerular Filtration Rate 77; Glucose 163 mg/dL (70-105); Lactate Dehydrogenase 180 U/L (135-225); Phosphorous 2.9 mg/dL (2.5-4.5); Triglycerides 48 mg/dL (<150); Uric Acid 5.4 mg/dL (2.5-8.0)
[2022-01-07] MEDS ORDERED: POTASSIUM CHLORIDE 20 MEQ TABLET PO SCH (09:45)
[2022-01-07] MEDS ORDERED: WARFARIN 5 MG TABLET PO ONE (14:00)
[2022-01-07] MEDS ORDERED: LEVALBUTEROL 0.63 MG/3 ML AMPUL.NEB NEB PRN (16:20)
[2022-01-07] MEDS ORDERED: DILTIAZEM 25 MG/5 ML VIAL IV SCH (16:50)
[2022-01-07] MEDS ORDERED: DIGOXIN 500 MCG/2 ML AMPUL IV SCH (17:20)
--- NOTE | 2022-01-07 18:45 | Event Note ---
Event Note Event Note: Patient developed A. fib RVR this late afternoon with heart rates from the 130s to 160s. Patient asymptomatic. Several doses of Lopressor without response. I revealed diltiazem 10 mg push without response. 1 dose of digoxin given. Patient heart rate not responding. Will transfer the patient to the unit and put on diltiazem drip if that ineffective then will likely try amiodarone drip. At bedside exam patient is tachycardic and irregular. No new chest pain or shortness of breath. Will check TSH. Magnesium level appropriate. Critical care time 40 minutes
[2022-01-07] MEDS: DILTIAZEM 125 MG in DEXTROSE 5% IN WATER 100 ML IV SCH ×2 (19:15→21:42)
[2022-01-07] MEDS: LEVALBUTEROL 0.63 MG/3 ML AMPUL.NEB NEB SCH (20:57)
[2022-01-07] MEDS: ATORVASTATIN 20 MG TABLET PO SCH (21:44)
[2022-01-07] MEDS: DIGOXIN 500 MCG/2 ML AMPUL IV SCH (22:48)
[2022-01-08] MEDS: DIGOXIN 500 MCG/2 ML AMPUL IV SCH (03:25)
[2022-01-08] MEDS: 0.9 % SODIUM CHLORIDE 10 ML SYRINGE IV SCH ×4 (03:25→21:33)
[2022-01-08] MEDS: DILTIAZEM 125 MG in DEXTROSE 5% IN WATER 100 ML IV SCH (06:55)
[2022-01-08 07:28] LABS: INR 2.8 (0.9-1.1); Prothrombin Time 30.9 sec (11.9-14.5)
[2022-01-08 07:40] LABS: Blood Urea Nitrogen 18 mg/dL (8-23); Calcium 9.3 mg/dL (8.6-10.4); Carbon Dioxide 28 mmol/L (22-30); Chloride 100 mmol/L (96-108); Glomerular Filtration Rate 77; Glucose 150 mg/dL (70-105)
--- NOTE | 2022-01-08 07:45 | Internal Med Progress Note ---
SUBJECTIVE Subjective Patient information: Note initiated : 01/08/22 at 7:40 am Service Date, if different from initiated Date: [] Patient: Kevon Gomez 86 y/o F admitted on 01/06/22 for Shortness of breath- Acute Hypoxic Resp Failure. Chief Complaint: [] Interval history: History of present illness: Ms. Gomez is a 86 year old F History of present illness: Ms. Gomez is a 86 year old F Presents to the ED with dry cough and shortness of breath that started this morning. Patient denies history of asthma or COPD. She had a flu shot and COVID booster the other day. In the ED she was found to be hypoxic at 86% and mild tachypnea. She was wheezy on exam. Was given nebulizers and Solu-Medrol. CT of the chest was done which showed small effusions but otherwise unremarkable. RSV pending. Rapid COVID and flu were negative. She has a history of CVA as well as A. fib on Coumadin hypertension and hypothyroidism and diastolic heart failure. Potassium mildly low. Per the patient she was feeling fine yesterday she had the flu vaccine and the COVID booster. She went to bed feeling okay and woke up feeling fine. However she says her son felt she was a bit confused this morning. And she also admits to a mild cough and shortness of breath. Denies headache fever chills chest pain. She also feels little bit wheezy. 01/07 Patient still has mild cough. Some mild shortness of breath at possibly better. Influenza A positive on testing. Chest x-ray today showed some mild bibasilar atelectasis versus infiltrate. I suspect more atelectasis. Procalcitonin is unremarkable. Mild hypokalemia. Patient developed A. fib RVR this late afternoon with heart rates from the 130s to 160s. Patient asymptomatic. Several doses of Lopressor without response. I revealed diltiazem 10 mg push without response. 1 dose of digoxin given. Patient heart rate not responding. Will transfer the patient to the unit and put on diltiazem drip if that ineffective then will likely try amiodarone drip. At bedside exam patient is tachycardic and irregular. No new chest pain or shortness of breath. Will check TSH. Magnesium level appropriate. 01/08 Patient states she did not sleep very well last night because of everything that went on. But she states she is feeling better this morning. Heart rate controlled. Off diltiazem drip. Did get a digoxin load. Review of Systems: denies headache/fever/chills/nausea/vomiting/chest or abdominal pain/diarrhea. Otherwise see above. Constitutional Vitals: Vital Signs Temp Pulse Resp BP Pulse Ox O2 Del Method O2 Flow Rate 97.0 F 89 19 147/85 95 0.5 01/08/22 04:05 01/08/22 07:01 01/08/22 07:01 01/08/22 07:01 01/08/22 07:01 01/08/22 05:01 01/08/22 05:01 Period Temp Pulse Resp BP Sys/Calloway Pulse Ox O2 Del Method O2 Flow Rate Last 24 Hr 97.0 F-98.7 F 31-150 10-32 114-161/69-108 89-100 Nasal Cannula-Room Air 0-3 Intake and Output 01/07/22 01/08/22 01/08/22 19:59 03:59 11:59 Intake Total 1045 Output Total 400 900 300 Balance -400 145 -300 Weight 52.934 kg Intake & Output: Intake & Output 01/07/22 01/08/22 01/08/22 19:59 03:59 11:59 Intake Total 1045 Output Total 400 900 300 Balance -400 145 -300 Weight 52.934 kg Intake: IV 45 Cardizem 125 mg In Dextrose 5% 45 in Water 100 ml @ 5 MG/HR 5 mls /hr IV Q12H [facility] Rx#:[id number] Oral 1000 Output: Void Amount 400 900 300 Other: Urine Appearance Clear Clear Urine Color Dark Yellow Pale Urine Odor Normal Normal Stool Size Small Stool Color Brown Stool Consistency Soft Exam: General: Alert, Awake, No acute Distress Eyes/N/T: EOMI,, Head/Neck: neck supple, CV: irreg irreg, No murmurs, Pulm: mild wheezing b/l slightly better, no rales Abd: soft, nontender, +BS x4 Ext: no clubbing/cyanosis, trace b/l LE edema Neuro: Alert, no focal deficits, moves all extremities, Skin: warm/dry OBJ DATA Labs CBC & Chem 7: 01/07/22 05:30 01/08/22 06:05 Labs: Abnormal Lab Results 01/08/22 01/07/22 01/07/22 06:05 07:51 05:30 RDW Neut % (Auto) Lymph % (Auto) Lymph # (Auto) POC PT PT 30.9 H 21.1 H POC INR INR 2.8 H 1.8 H D-Dimer POC Potassium Potassium 3.2 L Carbon Dioxide Glucose 163 H POC Glucose POC WB Ioniz Calcium C-Reactive Protein 01/07/22 01/06/22 01/06/22 05:30 15:53 14:25 RDW 14.7 H Neut % (Auto) 87.3 H Lymph % (Auto) 5.3 L Lymph # (Auto) 0.26 L POC PT 20.9 H PT POC INR 1.8 H INR D-Dimer POC Potassium 3.2 L Potassium Carbon Dioxide Glucose POC Glucose 130 H POC WB Ioniz Calcium 1.05 L C-Reactive Protein 01/06/22 01/06/22 01/06/22 14:15 14:14 14:14 RDW 14.8 H Neut % (Auto) 85.6 H Lymph % (Auto) 5.9 L Lymph # (Auto) 0.40 L POC PT PT POC INR INR D-Dimer 0.73 H POC Potassium Potassium Carbon Dioxide Glucose POC Glucose POC WB Ioniz Calcium C-Reactive Protein 1.00 H 01/06/22 14:14 RDW Neut % (Auto) Lymph % (Auto) Lymph # (Auto) POC PT PT POC INR INR D-Dimer POC Potassium Potassium 3.2 L Carbon Dioxide 31 H Glucose 132 H POC Glucose POC WB Ioniz Calcium C-Reactive Protein Meds: Medications Acetaminophen (Acetaminophen 325 Mg Tablet) 650 mg PO Q6HP PRN; Protocol PRN Reason: Per Pain Protocol/Fever > 101 Hydrocodone Bitart/Acetaminophen (Hydrocodone/Apap 5/325mg Tablet) 1 tab PO Q6- 8HP PRN; Protocol PRN Reason: pain Atorvastatin Calcium (Atorvastatin 20 Mg Tablet) 10 mg PO HS [facility] Last Admin: 01/07/22 21:44 Dose: 10 mg Bisoprolol Fumarate (Bisoprolol 5 Mg Tablet) 15 mg PO DAILY [facility] Docusate Sodium (Docusate Sodium 100 Mg Capsule) 100 mg PO BID [facility] Last Admin: 01/07/22 23:03 Dose: 100 mg Furosemide (Furosemide 40 Mg Tablet) 40 mg PO DAILY [facility] Last Admin: 01/07/22 08:07 Dose: 40 mg Potassium Chloride 40 meq/ (Dextrose) 520 mls @ 130 mls/hr IV UD PRN PRN Reason: Potassium < 3 Magnesium Sulfate (Magnesium Sulfate) 2 gm in 50 mls @ 50 mls/hr IV UD PRN PRN Reason: Magnesium </= 1.6 Diltiazem HCl 125 mg/ Dextrose 125 mls @ 5 mls/hr IV Q12H [facility]; Protocol Last Admin: 01/08/22 06:55 Dose: Not Given Levalbuterol HCl (Levalbuterol 0.63 Mg/3 Ml Ampul.Neb) 0.63 mg NEB BID [facility] Last Admin: 01/07/22 20:57 Dose: 0.63 mg Levalbuterol HCl (Levalbuterol 0.63 Mg/3 Ml Ampul.Neb) 0.63 mg NEB Q4HP PRN PRN Reason: dyspnea Levothyroxine Sodium (Levothyroxine Sodium 112 Mcg Tablet) 112 mcg PO DAILY [facility] Last Admin: 01/07/22 08:07 Dose: 112 mcg Lisinopril (Lisinopril 5 Mg Tablet) 5 mg PO DAILY [facility] Last Admin: 01/07/22 08:07 Dose: 5 mg Methylprednisolone Sodium Succinate (Methylprednisolone Sod Succ 40 Mg/Ml Vial) 40 mg IV Q12 [facility] Last Admin: 01/07/22 21:46 Dose: 40 mg Metoprolol Tartrate (Metoprolol Tartrate 5 Mg/5 Ml Vial) 5 mg IV Q2HP PRN PRN Reason: Tachyarrhythmias HR>110 Last Admin: 01/07/22 14:44 Dose: 5 mg Ondansetron HCl (Ondansetron 4 Mg/2 Ml Vial) 4 mg IV Q4HP PRN PRN Reason: Nausea And Vomiting Oseltamivir Phosphate (Oseltamivir Phosphate 75 Mg Capsule) 75 mg PO BID [facility] Stop: 01/11/22 09:01 Last Admin: 01/07/22 21:44 Dose: 75 mg Timolol 0.5% Ophth (Drops Bottle 5ml) 1 dose OS DAILY [facility] Polyethylene Glycol (Polyethylene Glycol 3350 17 Gm Packet) 17 gm PO DAILYP PRN PRN Reason: Constipation Potassium Chloride (Potassium Chloride 20 Meq Tablet) 40 meq PO UD PRN PRN Reason: Potssium is 3-3.5 Potassium Chloride (Potassium Chloride 20 Meq Tablet) 40 meq PO UD PRN PRN Reason: Potassium < 3 Senna (Sennosides 1 Tablet) 2 tab PO DAILYP PRN PRN Reason: Constipation Sodium Chloride (0.9 % Sodium Chloride 10 Ml Syringe) 10 ml IV Q8 [facility] Last Admin: 01/08/22 07:10 Dose: 10 ml Warfarin Sodium (Warfarin Per Pharmacy) 1 order PO DAILY@1400 [facility] Last Admin: 01/07/22 15:53 Dose: 1 order A/P Narrative A/P Narrative: A: *Acute hypoxic respiratory failure: 2/2 viral reactive airway vs ?developing pna -on 0.5L [place] *Reactive airway, viral-associated bronchial reactivity: -flu(+), rsv(-) *Influenza A infection: *Encephalopathy: Improved *Chronic Afib with RVR: *h/o CVA: *h/o diastolic CHF: *HTN/HLD: *Hypothyroidism: *Hypokalemia: improving P: -cardizem gtt now off, cont BB(increase) -nebs prn -steroids (wean) -tamiflu -O2 supp and wean -Monitor and replace electrolytes -f/u cbc/chemistry -Continue home BB(increased)/ACEI -cont home lasix -pct -PT/OT -ppx: warfarin per pharm Time Spent With Patient Time: Total time spent is greater than 50% in coordination of care (as documented) at patient's floor/unit and/or counseling patient: Total time spent with greater than 50% in coordination of care (as documented) at patient's floor/unit and/or counseling patient:: 35 - 50 minutes QUALITY VTE Deep Vein Thrombosis/Pulmonary Embolism Present on Admission: No
[2022-01-08] MEDS: LEVALBUTEROL 0.63 MG/3 ML AMPUL.NEB NEB SCH ×2 (08:48→20:55)
[2022-01-08] MEDS ORDERED: TIMOLOL 0.5% OPHTH DROPS BOTTLE 5ML OS SCH (09:00)
[2022-01-08] MEDS: OSELTAMIVIR PHOSPHATE 75 MG CAPSULE PO SCH ×2 (09:39→21:32)
[2022-01-08] MEDS: DOCUSATE SODIUM 100 MG CAPSULE PO SCH ×2 (09:39→21:32)
[2022-01-08] MEDS: FUROSEMIDE 40 MG TABLET PO SCH (09:39)
[2022-01-08] MEDS: LISINOPRIL 5 MG TABLET PO SCH (09:40)
[2022-01-08] MEDS: LEVOTHYROXINE SODIUM 112 MCG TABLET PO SCH (09:40)
[2022-01-08] MEDS: methylPREDNISolone SOD SUCC 40 MG/ML VIAL IV SCH ×2 (09:40→21:32)
[2022-01-08] MEDS: BISOPROLOL 5 MG TABLET PO SCH (09:40)
[2022-01-08] MEDS: TIMOLOL 0.5% OPHTH DROPS BOTTLE 5ML OS SCH (09:41)
[2022-01-08] MEDS ORDERED: DILTIAZEM 125 MG in DEXTROSE 5% IN WATER 100 ML IV PRN (12:14)
--- NOTE | 2022-01-08 12:26 | Discharge Summary ---
Discharge Provider Provider IMPORTANT FOLLOW-UP INFORMATION FOR PCP: Patient information: Note initiated : 01/08/22 at 12:24 pm Service Date, if different from initiated Date: [] Patient: Kevon Gomez 86 y/o F admitted on 01/06/22 for Shortness of breath- Acute Hypoxic Resp Failure. Chief Complaint: [] Date of admission: 01/06/22 19:44 Discharge date: 01/09/22 Primary care physician: Pamela Bowman Consults: 01/06/22 Consult to Physician [CONS] Stat Comment: Consulting Provider: Jose Francisco Ochoa Reason For Exam: Physician to Consult COURSE Hospital Course Hospital course: History of present illness: Ms. Gomez is a 86 year old F History of present illness: Ms. Gomez is a 86 year old F Presents to the ED with dry cough and shortness of breath that started this m orning. Patient denies history of asthma or COPD. She had a flu shot and COVID booster the other day. In the ED she was found to be hypoxic at 86% and mild tachypnea. She was wheezy on exam. Was given nebulizers and Solu-Medrol. CT of the chest was done which showed small effusions but otherwise unremarkable. RSV pending. Rapid COVID and flu were negative. She has a history of CVA as well as A. fib on Coumadin hypertension and hypothyroidism and diastolic heart failure. Potassium mildly low. Per the patient she was feeling fine yesterday she had the flu vaccine and the COVID booster. She went to bed feeling okay and woke up feeling fine. However she says her son felt she was a bit confused this morning. And she also admits to a mild cough and shortness of breath. Denies headache fever chills chest pain. She also feels little bit wheezy. 01/07 Patient still has mild cough. Some mild shortness of breath at possibly better. Influenza A positive on testing. Chest x-ray today showed some mild bibasilar atelectasis versus infiltrate. I suspect more atelectasis. Procalcitonin is unremarkable. Mild hypokalemia. Patient developed A. fib RVR this late afternoon with heart rates from the 130s to 160s. Patient asymptomatic. Several doses of Lopressor without response. I revealed diltiazem 10 mg push without response. 1 dose of digoxin given. Patient heart rate not responding. Will transfer the patient to the unit and put on diltiazem drip if that ineffective then will likely try amiodarone drip. At bedside exam patient is tachycardic and irregular. No new chest pain or shortness of breath. Will check TSH. Magnesium level appropriate. 01/08 Patient states she did not sleep very well last night because of everything that went on. But she states she is feeling better this morning. Heart rate controlled. Off diltiazem drip. Did get a digoxin load. 01/09 Patient sitting up in chair eating breakfast. Patient's heart rate stable. Patient excited about going home. Patient on room air. A: *Acute hypoxic respiratory failure: 2/2 viral reactive airway vs ?developing pna -on 0.5L NC *Reactive airway, viral-associated bronchial reactivity: -flu(+), rsv(-) *Influenza A infection: *Encephalopathy: Improved *Chronic Afib with RVR: *h/o CVA: *h/o diastolic CHF: *HTN/HLD: *Hypothyroidism: *Hypokalemia: improving P: -tamiflu -Continue home BB(increased) Discharge diagnosis: Acute hypoxic respite failure viral associated bronchial reactivity influen Secondary discharge diagnosis: Influenza A A. fib RVR Encephalopathy CVA history of diastolic CHF hypertension hyperlipidemia hypothyroidism hyperkalemia Time Spent with Patient Time attestation: Total time spent providing and/or coordinating discharge services: Time spent: Greater than 30 minutes EXAM Constitutional Vitals: Temp Pulse Resp BP Pulse Ox O2 Del Method O2 Flow Rate 97 F 98 H 21 121/66 94 0.5 01/08/22 12:01 01/08/22 09:01 01/08/22 12:01 01/08/22 12:01 01/08/22 12:01 01/08/22 09:44 01/08/22 05:01 Discharge Data Data Completed and Pending Labs on day of discharge: Labs from last 24 hours 01/08/22 01/08/22 01/07/22 06:05 06:05 05:30 PT 30.9 H INR 2.8 H Sodium 137 Potassium 4.4 Chloride 100 Carbon Dioxide 28 Anion Gap 9.0 BUN 18 Creatinine 0.7 GFR Calculation 77 Glucose 150 H Calcium 9.3 TSH Free T4 1.26 01/07/22 05:30 PT INR Sodium Potassium Chloride Carbon Dioxide Anion Gap BUN Creatinine GFR Calculation Glucose Calcium TSH 0.54 Free T4 Discharge Plan Patient/Caregiver Discharge Instructions Activity: increase activity as tolerated Diet: Regular Diet Prescriptions: New oseltamivir 75 mg Capsule 75 mg PO BID Qty: 4 0RF Continued furosemide 40 MG tablet 40 mg PO DAILY atorvastatin 20 MG tablet 10 mg PO HS warfarin [Jantoven] 5 MG tablet 5 mg PO DAILY lisinopril 5 MG tablet 5 mg PO DAILY levothyroxine 112 MCG tablet 112 mcg PO DAILY potassium chloride 20 MEQ tablet 20 meq PO BIDCC Qty: 60 0RF benzonatate 100 MG capsule 100 mg PO TIDP PRN (Reason: Cough) Qty: 21 0RF timolol maleate 0.5 % Drops 1 drp ophthalmic (eye) QDAY Rx Instructions: Instill 1 drop into left eye every moning. Changed bisoprolol fumarate 10 mg tablet 20 mg PO QAM Qty: 1 0RF Follow Up Plan Follow up with: Pamela Bowman ARNP [Primary Care Provider] - Patient Disposition: Home Health Service Prognosis: Fair Rehab Potential: Fair Overall status at discharge: patient is progressing back to baseline Discharge Orders: Discharge Order (Routine); Ordered 01/09/22 Ordered By: Jose Francisco Ochoa [facility] VTE Deep Vein Thrombosis/Pulmonary Embolism Present on Admission: No
[2022-01-08] MEDS ORDERED: DIGOXIN 500 MCG/2 ML AMPUL IV SCH (14:00)
[2022-01-08] MEDS ORDERED: WARFARIN 2 MG TABLET PO SCH (14:00)
[2022-01-08] MEDS: ATORVASTATIN 20 MG TABLET PO SCH (21:32)
[2022-01-09] MEDS: 0.9 % SODIUM CHLORIDE 10 ML SYRINGE IV SCH (06:06)
[2022-01-09 06:56] LABS: INR 2.9 (0.9-1.1); Prothrombin Time 31.4 sec (11.9-14.5)
[2022-01-09] MEDS: LEVALBUTEROL 0.63 MG/3 ML AMPUL.NEB NEB SCH (09:08)
[2022-01-09] MEDS: FUROSEMIDE 40 MG TABLET PO SCH (09:29)
[2022-01-09] MEDS: DOCUSATE SODIUM 100 MG CAPSULE PO SCH (09:29)
[2022-01-09] MEDS: OSELTAMIVIR PHOSPHATE 75 MG CAPSULE PO SCH (09:30)
[2022-01-09] MEDS: LISINOPRIL 5 MG TABLET PO SCH (09:30)
[2022-01-09] MEDS: TIMOLOL 0.5% OPHTH DROPS BOTTLE 5ML OS SCH (09:30)
[2022-01-09] MEDS: BISOPROLOL 5 MG TABLET PO SCH (09:30)
[2022-01-09] MEDS: methylPREDNISolone SOD SUCC 40 MG/ML VIAL IV SCH (09:30)
[2022-01-09] MEDS: LEVOTHYROXINE SODIUM 112 MCG TABLET PO SCH (09:30)
--- NOTE | 2022-01-09 11:30 | EKG ---
[facility] Test Date: 2022-01-06 Pat Name: Kevon Gomez Department: ED Room: Gender: Female [employer]: LR : 1935 Requested By: Justino Liang Order Number: [id number] Reading MD: Quinten Riojas Measurements Intervals [place] Rate: 85 P: OR: QRS: 68 QRSD: 84 T: 1 QT: 364 QTc: 433 Interpretive Statements Atrial fibrillation Borderline repolarization abnormality Electronically Signed On 01-09-2022 11:30:09 PST by Quinten Riojas /[id number]
[2022-01-09] MEDS ORDERED: WARFARIN 1 MG TABLET PO ONE (14:00)
== END 2022-01-09 12:20 | disposition home health service (06) | DRG 189 ==
LOC: ED 13:12 → MEDSUR 19:44 → ICU 01-07 18:29
PROVIDERS: ADMIT Internal Medicine; ATTEND Internal Medicine